=== PATIENT | female | born 1975 | race Caucasian/White ===

== ENCOUNTER 2022-09-25 01:16 | Emergency (ER) | payer OTHER ==
[~2022-09-25] VITALS: Ht 172.7 cm; Wt 90.7 kg
--- NOTE | 2022-09-25 01:22 | NUR ---
TO ER BED 9. [id number] FROM HOME C/O ANXIETY S/P ARGUMENT DENIES CP. PT IS ALERT AND ORIENTED. RR EVEN AND NON LABORED. CONNECTED TO POX AND HEART MONITOR.
[2022-09-25 02:00] VITALS: BP 146/92
--- NOTE | 2022-09-25 02:00 | NUR ---
Patient discharged to home in stable condition. Written and verbal after care instructions given. Patient verbalizes understanding of instruction.
== END 2022-09-25 02:01 | disposition home or self-care (01) ==
LOC: ER 01:22
DX: F43.0 Acute stress reaction (principal); I10 Essential (primary) hypertension

== ENCOUNTER 2025-01-09 17:24 | Emergency (ER) | payer OTHER ==
[~2025-01-09] VITALS: Ht 167.6 cm; Wt 81.6 kg
[2025-01-09] MEDS ORDERED: MECLIZINE HCL 25 MG TABLET ONE (18:17)
[2025-01-09] MEDS: IV NS 0.9% 500 ML BAG IV ONE (18:21)
[2025-01-09] MEDS: MECLIZINE HCL 12.5 MG TABLET PO ONE (18:21)
[2025-01-09 18:47] LABS: CALCIUM, SERUM 9.6 mg/dL (8.5-10.1); CARBON DIOXIDE 18 mmol/L (21-32); CHLORIDE 103 mmol/L (98-107); CREATININE 0.7 mg/dL (0.6-1.3); GLUCOSE 96 mg/dL (74-106); SODIUM SERUM 136 mmol/L (136-145); UREA NITROGEN, BLOOD 8 mg/dL (7-18)
[2025-01-09 18:53] LABS: BASOPHILS # (AUTO) 0.1 K/uL (0.0-0.2); BASOPHILS % (AUTO) 0.9 % (0.0-2.0); EOSINOPHILS # (AUTO) 0.3 K/uL (0.0-0.7); HEMATOCRIT 34 % (33-45); LYMPHOCYTES # (AUTO) 2.4 K/uL (0.8-4.8); LYMPHOCYTES % (AUTO) 25.2 % (20.0-44.0); MEAN CORPUSCULAR HEMOGLOBIN 25 PG (26.0-33.0); MEAN CORPUSCULAR HGB CONC 32 g/dl (31.0-36.0); MEAN CORPUSCULAR VOLUME 76 fL (82-100); MONOCYTES # (AUTO) 0.8 K/uL (0.1-1.30); MONOCYTES % (AUTO) 8.6 % (2.0-12.0); NEUTROPHILS % (AUTO) 62.3 % (43.0-81.0); PLATELET COUNT (AUTO) 343 K/uL (150-450); RED BLOOD CELL COUNT(AUTO) 4.49 MIL/uL (4.0-5.2); RED CELL DISTRIBUTION WIDTH 16.4 % (11.5-15.0); WHITE BLOOD COUNT (AUTO) 9.7 K/uL (4.3-11.0)
[2025-01-09] MEDS ORDERED: MECL-182 PO (21:01)
[2025-01-09 21:15] VITALS: BP 132/78; TEMP 98.5; O2SAT 99
== END 2025-01-09 21:16 | disposition home or self-care (01) ==
LOC: ER 17:29
DX: R42 Dizziness and giddiness (principal); I10 Essential (primary) hypertension
CPT/HCPCS: 99285; 71045; 93005; 85025; 80048; 83735; 36415; 84484 ×2; J8597